=== PATIENT | male | born 2000 | race Caucasian/White ===

== ENCOUNTER 2021-01-18 23:36 | Emergency (ER) | payer OTHER ==
[~2021-01-18] VITALS: Ht 172.7 cm; Wt 77.1 kg
--- NOTE | 2021-01-18 23:40 | NUR ---
ER at bedside examining patient.
[2021-01-18 23:52] VITALS: BP_SYST 139
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
--- NOTE | 2021-01-18 23:58 | NUR ---
Patient to ER bed 02 to gown for evaluation. Side rails up. Report given to RODRIGO Hoffman
--- NOTE | 2021-01-19 01:25 | NUR ---
Patient transported to radiology via wheelchair, accompanied by tech.
[2021-01-19] MEDS ORDERED: PROCHLORPERAZINE EDISYLATE 10 MG/2 ML VIAL IM ONE (02:15)
[2021-01-19] MEDS ORDERED: DIPHENHYDRAMINE INJ 50 MG/ML VIAL IM ONE (02:15)
[2021-01-19] MEDS ORDERED: KETOROLAC TROMETHAMINE 30 MG VIAL IM ONE (02:15)
[2021-01-19 02:28] VITALS: BP_SYST 142
--- NOTE | 2021-01-19 02:33 | NUR ---
Patient given written and verbal discharge instructions and verbalizes understanding. ER MD discussed with patient the results and treatment provided. Patient in stable condition. ID arm band removed. Patient educated on pain management and to follow up with PMD. Pain Scale 3/10. Opportunity for questions provided and answered. Medication side effect fact sheet provided.
== END 2021-01-19 02:28 | disposition home or self-care (01) ==
LOC: SED 23:36
DX: S06.0X0A Concussion without loss of consciousness, initial encounter (principal); Z88.0 Allergy status to penicillin; Y04.0XXA Assault by unarmed brawl or fight, initial encounter; Y93.89 Activity, other specified; Y92.89 Other specified places as the place of occurrence of the external cause; Y99.8 Other external cause status
CPT/HCPCS: 70450; 76376; 96372; 99284; J0780; J1200; J1885